=== PATIENT | male | born 1960 | race Two or more races ===

== ENCOUNTER 2023-03-14 18:49 | Emergency (ER) | payer OTHER ==
[~2023-03-14] VITALS: Ht 162.6 cm; Wt 63.6 kg
[2023-03-14 19:49] VITALS: TEMP 97.6
[2023-03-14 20:11] LABS: BASOPHILS % (AUTO) 0.6 % (0.0-2.0); EOSINOPHILS % (AUTO) 1.8 % (1.0-6.0); HEMATOCRIT 37.4 % (41-53); HEMOGLOBIN 12.6 g/dL (13.5-17.5); LYMPHOCYTES # (AUTO) 2.4 K/uL (1.0-4.8); LYMPHOCYTES % (AUTO) 41.3 % (22.0-44.0); MEAN CORPUSCULAR HEMOGLOBIN 33.8 pg (26.0-34.0); MEAN CORPUSCULAR HGB CONC 33.7 G/dL (31.0-37.0); MEAN CORPUSCULAR VOLUME 100 fL (80-100); MONOCYTES # (AUTO) 0.8 K/uL (0.1-1.0); MONOCYTES % (AUTO) 13.7 % (2.0-9.0); NEUTROPHILS # (AUTO) 2.5 K/uL (1.8-7.7); NEUTROPHILS % (AUTO) 42.6 % (40.0-70.0); PLATELET COUNT (AUTO) 86 K/uL (150-450); RED BLOOD CELL COUNT(AUTO) 3.73 MIL/uL (4.50-5.90); RED CELL DISTRIBUTION WIDTH 16.4 % (11.5-14.5); WHITE BLOOD COUNT (AUTO) 5.8 K/uL (4.5-11.0)
[2023-03-14 20:27] LABS: ANION GAP 12 mmol/L (8-16); CALCIUM, TOTAL 8.8 mg/dL (8.8-10.5); CARBON DIOXIDE 19 mmol/L (22-29); CHLORIDE 104 mmol/L (98-107); CREATININE 0.87 mg/dL (0.60-1.30); GLOMERULAR FILTR. RATE CALC > 60 mL/min (>60); GLUCOSE,RANDOM 77 mg/dL (70-110); POTASSIUM 3.3 mmol/L (3.5-5.1); SODIUM SERUM 135 mmol/L (136-145); UREA NITROGEN, BLOOD 29 mg/dL (7-18)
[2023-03-14 20:28] LABS: TROPONIN I-HIGH SENSITIVITY 22 ng/L (<76)
[2023-03-14 20:33] LABS: ALANINE AMINOTRANSFERASE 80 U/L (12-78); ALBUMIN 2.6 g/dL (3.4-5.0); ALKALINE PHOSPHATASE 161 U/L (46-116); ASPARTATE AMINOTRANSFERASE 125 U/L (15-37); BILIRUBIN,TOTAL 3.7 mg/dL (0.1-1.0); CREATINE KINASE, TOTAL ONLY 415 U/L (39-308); TOTAL PROTEIN, SERUM 6.7 g/dL (6.4-8.2)
[2023-03-14 20:36] LABS: INR 1.3 (0.9-1.1); PROTHROMBIN TIME 13.8 SEC (9.4-11.6)
[2023-03-14 20:53] LABS: B-TYPE NATRIURETIC PEPTIDE 45 pg/mL (0-100)
[2023-03-14 20:58] LABS: RBC MORPHOLOGY COMMENT ABNORMAL RBC MORPH
[2023-03-14 22:51] LABS: APPEARANCE,URINE CLEAR (CLEAR); BILIRUBIN,URINE NEGATIVE (NEGATIVE); COLOR,URINE YELLOW (YELLOW); GLUCOSE, URINE (UA) TRACE mg/dL (NEGATIVE); LEUKOCYTE ESTERASE ,URINE NEGATIVE (NEGATIVE); NITRATE,URINE NEGATIVE (NEGATIVE); OCCULT BLOOD,URINE NEGATIVE (NEGATIVE); PROTEIN,URINE TRACE mg/dL (NEGATIVE); SPECIFIC GRAVITIY, URINE 1.033 (1.003-1.030)
[2023-03-15 01:44] LABS: ALCOHOL, URINE DRUG SCREEN NEGATIVE (NEGATIVE); AMPHET/METH SCREEN,URINE POSITIVE (NEGATIVE); BARBITURATE SCREEN, URINE NEGATIVE (NEGATIVE); BENZODIAZEPINES SCREEN,URINE NEGATIVE (NEGATIVE); CANNABINOID SCREEN,URINE POSITIVE (NEGATIVE); COCAINE SCREEN,URINE NEGATIVE (NEGATIVE); METHADONE SCREEN, URINE NEGATIVE (NEGATIVE); OPIATE SCREEN,URINE NEGATIVE (NEGATIVE); PHENCYCLIDINE SCREEN,URINE NEGATIVE (NEGATIVE)
[2023-03-15 06:02] VITALS: BP 93/56; PULSE 67; RESP 17
== END 2023-03-15 06:09 | disposition home or self-care (01) ==
LOC: EMS 18:49
DX: R06.02 Shortness of breath (principal); F15.10 Other stimulant abuse, uncomplicated; F10.20 Alcohol dependence, uncomplicated; J45.909 Unspecified asthma, uncomplicated; I50.9 Heart failure, unspecified
CPT/HCPCS: 71045; 74176; 80053; 80307; 81003; 82550; 83605; 83880; 84484; 85025; 85610; 85730; 93005; 99285; 36415-L1; 36415-TC

== ENCOUNTER 2023-03-16 12:28 | Emergency (ER) | payer OTHER ==
[~2023-03-16] VITALS: Ht 162.6 cm; Wt 70.5 kg
[2023-03-16 12:35] VITALS: TEMP 98.3
[2023-03-16] MEDS ORDERED: ACETAMINOPHEN 325 MG TABLET PO ONE (12:45)
[2023-03-16 13:15] VITALS: BP 106/72; PULSE 88; RESP 16
== END 2023-03-16 13:51 | disposition home or self-care (01) ==
LOC: EMS 12:28
DX: M54.18 Radiculopathy, sacral and sacrococcygeal region (principal); R56.9 Unspecified convulsions; F15.90 Other stimulant use, unspecified, uncomplicated
CPT/HCPCS: 99283

== ENCOUNTER 2023-03-16 22:03 | Emergency (ER) | payer OTHER ==
[~2023-03-16] VITALS: Ht 165.1 cm; Wt 78.0 kg
[2023-03-16 22:08] VITALS: BP 108/72; PULSE 83; RESP 16; TEMP 98
[2023-03-17] MEDS ORDERED: IBUPROFEN 600 MG TABLET PO ONE (00:30)
== END 2023-03-17 01:14 | disposition home or self-care (01) ==
LOC: EMS 22:07
DX: S09.93XA Unspecified injury of face, initial encounter (principal); F15.90 Other stimulant use, unspecified, uncomplicated; Y04.0XXA Assault by unarmed brawl or fight, initial encounter; Y93.89 Activity, other specified; Y92.89 Other specified places as the place of occurrence of the external cause; Y99.8 Other external cause status
CPT/HCPCS: 99282; Z7502; Z7610